=== PATIENT | male | born 1965 | race Caucasian/White ===

== ENCOUNTER 2019-08-19 09:23 | Emergency (ER) | payer MEDICAID ==
[~2019-08-19] VITALS: Ht 162.6 cm; Wt 62.0 kg
[2019-08-19 09:26] VITALS: BP 115/66
--- NOTE | 2019-08-19 10:15 | NUR ---
PARENT TRAINER: PT TO ROOM FROM OTIS RODRIGUEZ.
[2019-08-19] MEDS ORDERED: DIPH,PERTUSS(ACELL),TET VAC/PF 0.5 ML IM-VACC ONE (11:00)
== END 2019-08-19 11:16 ==
LOC: ED 10:27
DX: S80.862A Insect bite (nonvenomous), left lower leg, initial encounter (principal); L03.116 Cellulitis of left lower limb; R60.0 Localized edema; G89.29 Other chronic pain; M79.662 Pain in left lower leg; M79.661 Pain in right lower leg; W57.XXXA Bitten or stung by nonvenomous insect and other nonvenomous arthropods, initial encounter; Y93.89 Activity, other specified; Y92.89 Other specified places as the place of occurrence of the external cause; Y99.8 Other external cause status
CPT/HCPCS: 90471; 90715; 99283

== ENCOUNTER 2019-12-09 10:35 | Emergency (ER) | payer MEDICAID ==
[~2019-12-09] VITALS: Ht 160 cm; Wt 57.0 kg
[2019-12-09 10:37] VITALS: BP 104/64
[2019-12-09] MEDS ORDERED: NEOSPORIN OINT. PKT 1 PACKET ONE (11:09)
[2019-12-09] MEDS ORDERED: IBUPROFEN 600 MG TABLET ONE (11:10)
--- NOTE | 2019-12-09 11:16 | NUR ---
MEDICATED PER ORDERS, WOUND DRESSING IN PROCESS. TO BE DC
--- NOTE | 2019-12-09 11:16 | NUR ---
Patient/Caregiver given discharge instructions and they have confirmed that they understand the instructions. Patient ambulatory with steady gait.
[2019-12-09] MEDS ORDERED: IBUPROFEN 200 MG TABLET PO ONE (11:30)
== END 2019-12-09 11:28 | disposition home or self-care (01) ==
LOC: ED 11:05
DX: L03.115 Cellulitis of right lower limb (principal); L03.116 Cellulitis of left lower limb
CPT/HCPCS: 99283

== ENCOUNTER 2020-06-06 12:20 | Inpatient (IN) | payer MEDICAID ==
[~2020-06-06] VITALS: Ht 160 cm; Wt 61.1 kg
--- NOTE | 2020-06-06 12:30 | NUR ---
DAY HABILITATION SUPERVISOR: PT AMBULATED TO THE ROOM W/ A STEADY GAIT. PT PROVIDED W/ GOWN AND INSTRUCTED TO CHANGE.
[2020-06-06 13:01] LABS: BASOPHILS % (AUTO) 1 % (0-1); EOSINOPHILS % (AUTO) 2 % (1-7); LYMPHOCYTES % (AUTO) 10 % (22-44); MD NO; MEAN CORPUSCULAR HEMOGLOBIN 30.7 pg (27.5-34.5); MEAN CORPUSCULAR HGB CONC 33.8 g/dL (33.2-36.2); MEAN PLATELET VOLUME 6.6 fL (7.4-10.4); MONOCYTES % (AUTO) 6 % (2-9); NEUTROPHILS % (AUTO) 82 % (42-75); PLATELET COUNT 613 x10^3/uL (130-400); RED CELL DISTRIBUTION WIDTH 12.2 % (9.4-14.8)
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
[2020-06-06 13:09] LABS: ALBUMIN 3.1 g/dL (3.4-5.0); ANION GAP 3 mmol/L (5-15); CALCIUM 8.9 mg/dL (8.5-10.1); CHLORIDE 110 mmol/L (98-107); CREATININE 0.99 mg/dL (0.7-1.3)
--- NOTE | 2020-06-06 13:11 | NUR ---
BREAK RN: PT RTD FROM XR, CALL LIGHT W/I REACH, NAD NOTED.
--- NOTE | 2020-06-06 13:46 | NUR ---
SBAR RPT TO JAYESH OJEDA.
[2020-06-06] MEDS ORDERED: CEFTRIAXONE PMX 1GM/50ML 50 ML ONE (13:57)
[2020-06-06] MEDS ORDERED: KETOROLAC 30 MG/1 ML ONE (13:57)
[2020-06-06] MEDS ORDERED: KETOROLAC 30 MG/1 ML IVPush ONE (14:00)
[2020-06-06] MEDS ORDERED: SODIUM CHLORIDE 0.9% 1,000ML IVBOLUS ONE (14:00)
[2020-06-06] MEDS ORDERED: CEFTRIAXONE PMX 1GM/50ML 50 ML IV ONE (14:00)
--- NOTE | 2020-06-06 14:03 | NUR ---
PT UPRIGHT ON GURNEY WITH EYES CLOSED, ABLE TO DOZE OFF, RESPONDS APPROP TO STSFF, COMFORT MEASURES PROVIDED, CALL LIGHT WITHIN REACH.
--- NOTE | 2020-06-06 14:56 | NUR ---
Pt to be admitted to MEDICAL, room 343. Report called to ANGIE ESCAMILLA.
[2020-06-06] MEDS ORDERED: VANCOMYCIN PER PHARMACY MC PRN (15:00)
[2020-06-06] MEDS ORDERED: ACETAMINOPHEN 325 MG TABLET PO PRN (15:00)
[2020-06-06] MEDS ORDERED: ZOLPIDEM 5MG TABLET PO PRN (15:00)
[2020-06-06] MEDS ORDERED: ONDANSETRON 2MG/ML, 2ML IVPush PRN (15:00)
[2020-06-06] MEDS ORDERED: SODIUM CHLORIDE FLUSH 10ML SYR IVF PRN (15:00)
[2020-06-06] MEDS ORDERED: METHOCARBAMOL 500 MG TABLET PO PRN (15:00)
[2020-06-06] MEDS ORDERED: DOCUSATE 100 MG CAPSULE PO PRN (15:00)
[2020-06-06] MEDS ORDERED: ENALAPRILAT 1.25 MG/ML, 2ML IVPush PRN (15:00)
[2020-06-06] MEDS ORDERED: GUAIFENESIN/DM 200-20MG, 10ML UDC PO PRN (15:00)
[2020-06-06] MEDS ORDERED: VANCOMYCIN 1,600 MG in SODIUM CHLORIDE 0.9% 250 ML IV ONE (16:00)
[2020-06-06] MEDS ORDERED: PHARMACOKINETIC MONITORING MC PRN (16:00)
[2020-06-06] MEDS ORDERED: PHARMACOKINETIC CONSULTATION MC ONE (16:00)
[2020-06-06] MEDS: PIPERACILLIN/TAZO/PMX 3.375GM 50 ML IV SCH ×2 (16:27→23:45)
[2020-06-06] MEDS: ENOXAPARIN 40 MG/0.4 ML SQ SCH (16:29)
[2020-06-06 16:34] VITALS: BP 106/59
[2020-06-06 19:16] VITALS: BP 109/68
[2020-06-06] MEDS: FAMOTIDINE 20 MG TABLET PO SCH (19:31)
[2020-06-07 00:32] VITALS: BP 112/65
[2020-06-07 05:07] LABS: BASOPHILS % (AUTO) 1 % (0-1); EOSINOPHILS % (AUTO) 3 % (1-7); LYMPHOCYTES % (AUTO) 18 % (22-44); MD NO; MEAN CORPUSCULAR HEMOGLOBIN 30.8 pg (27.5-34.5); MEAN CORPUSCULAR HGB CONC 33.9 g/dL (33.2-36.2); MEAN PLATELET VOLUME 6.7 fL (7.4-10.4); MONOCYTES % (AUTO) 8 % (2-9); NEUTROPHILS % (AUTO) 70 % (42-75); PLATELET COUNT 557 x10^3/uL (130-400); RED BLOOD COUNT 3.71 x10^6/uL (4.38-5.82); RED CELL DISTRIBUTION WIDTH 12.4 % (9.4-14.8)
[2020-06-07 05:15] LABS: ANION GAP 5 mmol/L (5-15); CALCIUM 8.9 mg/dL (8.5-10.1); CHLORIDE 108 mmol/L (98-107)
[2020-06-07 05:43] LABS: % IRON SATURATION 26 % (20-55); CREATININE 1.06 mg/dL (0.7-1.3); IRON LEVEL 57 mcg/dL (65-175); TOTAL IRON BINDING CAPACITY 223 mcg/dL (250-450)
[2020-06-07 07:13] VITALS: BP 128/81
[2020-06-07] MEDS: FAMOTIDINE 20 MG TABLET PO SCH ×2 (07:56→20:32)
[2020-06-07] MEDS: PIPERACILLIN/TAZO/PMX 3.375GM 50 ML IV SCH ×3 (07:56→23:00)
[2020-06-07] MEDS: VANCOMYCIN PMX 1GM/200ML 200 ML IVPB SCH (12:02)
[2020-06-07 12:41] VITALS: BP 117/76
[2020-06-07] MEDS ORDERED: VANCOMYCIN PMX 1GM/200ML 200 ML IVPB SCH (16:00)
[2020-06-07] MEDS: ENOXAPARIN 40 MG/0.4 ML SQ SCH (17:33)
[2020-06-07] MEDS ORDERED: MUPIROCIN OINT 2%, 1 GM APPL. TP SCH (18:00)
[2020-06-07 19:02] VITALS: BP 94/60
[2020-06-07] MEDS: MUPIROCIN OINT 2%, 22GM TP SCH (20:32)
[2020-06-08 01:01] VITALS: BP 95/60
[2020-06-08] MEDS: PIPERACILLIN/TAZO/PMX 3.375GM 50 ML IV SCH ×4 (05:19→23:14)
[2020-06-08 05:49] LABS: CREATININE 1.31 mg/dL (0.7-1.3); VANCOMYCIN,TROUGH 7.8 mcg/mL (5.0-10.0)
[2020-06-08] MEDS: OXYcodone/APAP 5/325MG TABLET PO PRN ×2 (05:52→17:57)
[2020-06-08] MEDS: VANCOMYCIN PMX 1GM/200ML 200 ML IVPB SCH (05:53)
[2020-06-08] MEDS: MUPIROCIN OINT 2%, 22GM TP SCH ×2 (05:53→18:06)
[2020-06-08 07:43] VITALS: BP 118/75
[2020-06-08] MEDS: FAMOTIDINE 20 MG TABLET PO SCH ×2 (08:46→20:08)
[2020-06-08] MEDS ORDERED: LORazepam 2 MG/ML, 1ML IVPush ONE ×2 (12:00→17:00)
[2020-06-08 13:56] VITALS: BP 105/65
[2020-06-08] MEDS: ENOXAPARIN 40 MG/0.4 ML SQ SCH (16:42)
[2020-06-08] MEDS ORDERED: VANCOMYCIN PMX 1GM/200ML 200 ML IVPB ONE (17:00)
[2020-06-08] MEDS ORDERED: OMNIPAQUE 350 MG/ML, 150 ML BOTTLE ONE (17:23)
[2020-06-08 20:14] VITALS: BP 101/65
[2020-06-09 01:45] VITALS: BP 95/56
[2020-06-09] MEDS: PIPERACILLIN/TAZO/PMX 3.375GM 50 ML IV SCH ×4 (04:57→23:52)
[2020-06-09] MEDS: MUPIROCIN OINT 2%, 22GM TP SCH ×2 (04:57→16:54)
[2020-06-09] MEDS: OXYcodone/APAP 5/325MG TABLET PO PRN ×2 (05:32→14:25)
[2020-06-09 05:55] LABS: CREATININE 1.24 mg/dL (0.7-1.3)
[2020-06-09 05:56] LABS: VANCOMYCIN,RANDOM 16.5 mcg/mL
[2020-06-09 06:30] VITALS: BP 92/56
[2020-06-09] MEDS: FAMOTIDINE 20 MG TABLET PO SCH ×2 (09:00→20:00)
[2020-06-09] MEDS: VANCOMYCIN PMX 1GM/200ML 200 ML IVPB SCH ×2 (09:52→22:42)
[2020-06-09 12:24] VITALS: BP 94/60
[2020-06-09] MEDS: ENOXAPARIN 40 MG/0.4 ML SQ SCH (16:46)
[2020-06-09 19:16] VITALS: BP 103/64
[2020-06-10 00:55] VITALS: BP 100/62
[2020-06-10] MEDS: MUPIROCIN OINT 2%, 22GM TP SCH ×2 (04:32→16:22)
[2020-06-10] MEDS: OXYcodone/APAP 5/325MG TABLET PO PRN ×3 (04:32→16:22)
[2020-06-10] MEDS: PIPERACILLIN/TAZO/PMX 3.375GM 50 ML IV SCH ×4 (05:20→22:57)
[2020-06-10] MEDS: FAMOTIDINE 20 MG TABLET PO SCH ×2 (08:40→20:09)
[2020-06-10 09:30] VITALS: BP 97/60
[2020-06-10] MEDS: VANCOMYCIN PMX 1GM/200ML 200 ML IVPB SCH ×2 (10:02→21:43)
[2020-06-10 15:15] VITALS: BP 93/54
[2020-06-10] MEDS: ENOXAPARIN 40 MG/0.4 ML SQ SCH (16:21)
[2020-06-10 20:00] VITALS: BP 105/55
[2020-06-11 00:50] VITALS: BP 93/51
[2020-06-11] MEDS: PIPERACILLIN/TAZO/PMX 3.375GM 50 ML IV SCH ×2 (04:30→11:18)
[2020-06-11] MEDS: MUPIROCIN OINT 2%, 22GM TP SCH ×2 (04:30→14:20)
[2020-06-11] MEDS: OXYcodone/APAP 5/325MG TABLET PO PRN ×2 (04:32→10:06)
[2020-06-11 06:27] VITALS: BP 100/61
[2020-06-11] MEDS: FAMOTIDINE 20 MG TABLET PO SCH ×2 (09:47→20:04)
[2020-06-11] MEDS: VANCOMYCIN PMX 1GM/200ML 200 ML IVPB SCH (10:05)
[2020-06-11 12:20] VITALS: BP 111/67
[2020-06-11] MEDS: ENOXAPARIN 40 MG/0.4 ML SQ SCH (16:44)
[2020-06-11 19:28] VITALS: BP 111/62
[2020-06-11] MEDS: DOXYCYCLINE 100MG TABLET PO SCH (20:04)
[2020-06-12 01:23] VITALS: BP 118/66
[2020-06-12] MEDS: MUPIROCIN OINT 2%, 22GM TP SCH (05:16)
[2020-06-12] MEDS: OXYcodone/APAP 5/325MG TABLET PO PRN ×2 (05:37→09:38)
[2020-06-12 07:18] VITALS: BP 99/60
[2020-06-12] MEDS: FAMOTIDINE 20 MG TABLET PO SCH (09:22)
[2020-06-12] MEDS: DOXYCYCLINE 100MG TABLET PO SCH (09:22)
[2020-06-12] MEDS ORDERED: DOXY100T PO (12:57)
[2020-06-12] MEDS ORDERED: SILV25CR30 TP (12:57)
[2020-06-12] MEDS ORDERED: TRAM50TA2 PO (12:57)
[2020-06-12] MEDS ORDERED: SILVER SULF. CRM 1%, 400GM TP SCH (13:00)
[2020-06-12 14:27] VITALS: BP 126/74
[2020-06-12] MEDS: ENOXAPARIN 40 MG/0.4 ML SQ SCH (16:30)
[2020-06-13] MEDS ORDERED: SILVER SULF. CRM 1% , 25GM TP SCH (09:00)
== END 2020-06-12 18:07 | disposition home or self-care (01) | DRG 603 ==
LOC: ED 14:09 → 3N 14:33
PROVIDERS: ADMIT Internal Medicine; ATTEND Internal Medicine
DX: L03.116 Cellulitis of left lower limb (principal); D64.9 Anemia, unspecified; E87.8 Other disorders of electrolyte and fluid balance, not elsewhere classified; D72.829 Elevated white blood cell count, unspecified; D47.3 Essential (hemorrhagic) thrombocythemia; Z59.0 Homelessness; Z82.49 Family history of ischemic heart disease and other diseases of the circulatory system
CPT/HCPCS: 36415; 71046; 80048; 80202; 82040; 82565; 82607; 82728; 83540; 83550; 83605; 84145; 85025; 87040; 87070; 87205; 93922; 96365; 96375; 99285; G0378; J0696; J1650; J1885; J2543; J3370; Q9967; J2060; J7030; J7050

== ENCOUNTER 2020-11-23 11:10 | Emergency (ER) | payer MEDICAID ==
[~2020-11-23] VITALS: Ht 160 cm; Wt 56.4 kg
[~2020-11-23 11:10] MED LIST: DOXY100T PO; SILV25CR30 TP; TRAM50TA2 PO
--- NOTE | 2020-11-23 11:15 | NUR ---
NIL X1. FAR LOBBY & BATHROOM CALLED WELL
--- NOTE | 2020-11-23 11:32 | NUR ---
VISUAL ACUITIES COMPLETED
--- NOTE | 2020-11-23 11:50 | NUR ---
PT TO ROOM 27 W/ C/O L LEG CELLULITIC AND WOUND W/ DRAINAGE. PT ALSO HAS C/O REDNESS, BLURRY VISION W/ YELLOW DRAINAGE. PT STATES LEG WOUND STARTED 2 WEEKS AND L EYE DRAINAGE AND YELLOW WITH REDNESS ANDBLURRY VISION STARTED 6 HOURS AGO. PT STATES BLURRED VISION ONLY WHEN MUCOUS TO EYE IS PRESENT. PT RESTING ON GURNEY. NADN. MONITORS APPLIED. VSS. WARM BLANKET PROVIDED. ERP DR. PLUMMER AT BEDSIDE FOR EVAL.
[2020-11-23] MEDS ORDERED: PROPARACAINE OPHTH 0.5%, 15ML LEFTEYE STA (11:54)
[2020-11-23 11:56] VITALS: BP 109/65
[2020-11-23] MEDS ORDERED: CEFTRIAXONE 1,000 MG ONE (12:00)
[2020-11-23] MEDS ORDERED: PROPARACAINE OPHTH 0.5%, 15ML ONE (12:00)
[2020-11-23] MEDS ORDERED: FLUORESCEIN OPHTHALMIC 1 MG STRIP ONE (12:00)
[2020-11-23] MEDS ORDERED: FLUORESCEIN OPHTHALMIC 1 MG STRIP LEFTEYE ONE (12:00)
[2020-11-23] MEDS ORDERED: CEFTRIAXONE 1,000 MG IM ONE (12:00)
--- NOTE | 2020-11-23 12:19 | NUR ---
WOUND CARE PERFORMED. PT SHARMAINE WELL.
[2020-11-23] MEDS ORDERED: NEOSPORIN OINT. PKT 1 PACKET ONE (12:45)
== END 2020-11-23 12:47 | disposition home or self-care (01) ==
LOC: ED 11:39
DX: S80.812A Abrasion, left lower leg, initial encounter (principal); L03.116 Cellulitis of left lower limb; H10.022 Other mucopurulent conjunctivitis, left eye; X58.XXXA Exposure to other specified factors, initial encounter; Y93.89 Activity, other specified; Y92.89 Other specified places as the place of occurrence of the external cause; Y99.8 Other external cause status
CPT/HCPCS: 96372; 99283; J0696